=== PATIENT | male | born 1965 | race Caucasian/White ===

== ENCOUNTER 2022-02-02 13:31 | Emergency (ER) | payer MEDICAID, OTHER ==
[~2022-02-02] VITALS: Ht 167.6 cm; Wt 66.7 kg
[2022-02-02 14:11] VITALS: BP 162/96
--- NOTE | 2022-02-02 14:13 | NUR ---
Pt back to lobby with daughter.
[2022-02-02] MEDS ORDERED: BACITRACIN OINT 500 UNITS/GM PKT TP ONE (15:05)
[2022-02-02] MEDS ORDERED: LIDOCAINE MPF 1% 10 MG/ML VIAL INJ ONE (15:35)
[2022-02-02] MEDS ORDERED: BACI1PAC6 TP ×2 (16:43→17:06)
[2022-02-02] MEDS ORDERED: CEPH-588 PO ×2 (16:43→17:06)
[2022-02-02 17:04] VITALS: BP 148/92
--- NOTE | 2022-02-02 17:07 | NUR ---
Patient discharged with v/s stable. Written and verbal after care instructions given and explained for [facility], Adult Patient alert, oriented and verbalized understanding of instructions. Ambulatory with steady gait. All questions addressed prior to discharge. ID band removed. Patient advised to follow up with PMD. Rx of Bacitracin Oint, keflex given. Patient educated on indication of medication including possible reaction and side effects. Opportunity to ask questions provided and answered.
[2022-02-02] MEDS ORDERED: IBUP-2213 PO (17:08)
== END 2022-02-02 17:07 | disposition home or self-care (01) ==
LOC: MED 13:31
DX: S61.211A Laceration without foreign body of left index finger without damage to nail, initial encounter (principal); E11.9 Type 2 diabetes mellitus without complications; Z79.4 Long term (current) use of insulin; Z79.899 Other long term (current) drug therapy; W45.8XXA Other foreign body or object entering through skin, initial encounter; Y93.89 Activity, other specified; Y92.89 Other specified places as the place of occurrence of the external cause; Y99.8 Other external cause status
CPT/HCPCS: 12002; 99283; J2001